=== PATIENT | female | born 1985 | race Two or more races ===

== ENCOUNTER 2017-03-12 16:45 | Emergency (ER) | payer MEDICAID ==
[~2017-03-12] VITALS: Ht 165.1 cm; Wt 53.8 kg
[2017-03-12 16:50] VITALS: BP 98/61
[2017-03-12 18:33] LABS: BASOPHILS # (AUTO) 0.03 x10^3/uL (0-0.1); BASOPHILS % (AUTO) 0 % (0-1); EOSINOPHILS # (AUTO) 0.25 x10^3/uL (0-0.4); EOSINOPHILS % (AUTO) 3 % (1-7); LYMPHOCYTES # (AUTO) 2.65 x10^3/uL (1-3.4); LYMPHOCYTES % (AUTO) 28 % (22-44); MD NO; MEAN CORPUSCULAR HEMOGLOBIN 30.6 pg (27.0-34.8); MEAN CORPUSCULAR HGB CONC 34.3 g/dL (32.4-35.8); MEAN CORPUSCULAR VOLUME 89.2 fL (80-100); MONOCYTES # (AUTO) 0.47 x10^3/uL (0.2-0.8); MONOCYTES % (AUTO) 5 % (2-9); NEUTROPHILS # (AUTO) 6.06 x10^3/uL (1.8-6.8); NEUTROPHILS % (AUTO) 64 % (42-75); PLATELET COUNT 249 x10^3/uL (130-400); RED BLOOD COUNT 4.27 x10^6/uL (3.82-5.3); RED CELL DISTRIBUTION WIDTH 12.5 % (9.6-15.2)
[2017-03-12 18:42] LABS: ALBUMIN 3.7 g/dL (3.4-5.0); ANION GAP 7 mmol/L (5-15); CALCIUM 8.6 mg/dL (8.5-10.1); CHLORIDE 105 mmol/L (98-107); CREATININE 0.77 mg/dL (0.55-1.02)
[2017-03-12 18:43] LABS: ACETAMINOPHEN < 2 mcg/mL (10-30); SALICYLATE LEVEL < 1.7 mg/dL (2.8-20.0)
== END 2017-03-12 19:01 | disposition left against medical advice (07) ==
LOC: ED 18:55
DX: F41.9 Anxiety disorder, unspecified (principal); F32.9 Major depressive disorder, single episode, unspecified
CPT/HCPCS: 36415; 80048; 80307; 80329; 82040; 84703; 85025; 99284; G0479; G0480

== ENCOUNTER 2017-03-14 02:19 | Observation (INO) | payer MEDICAID ==
[~2017-03-14] VITALS: Ht 165.1 cm; Wt 51.1 kg
[2017-03-14 03:35] LABS: AMPHETAMINE SCREEN, URINE Positive (Negative); BARBITURATE SCREEN, URINE Negative (Negative); BENZODIAZEPINE SCREEN, URINE Negative (Negative); CANNABINOID SCREEN, URINE Negative (Negative); COCAINE SCREEN, URINE Negative (Negative); METHADONE SCREEN, URINE Negative (Negative); OPIATE SCREEN, URINE Positive (Negative)
[2017-03-14 03:43] LABS: BASOPHILS # (AUTO) 0.02 x10^3/uL (0-0.1); BASOPHILS % (AUTO) 0 % (0-1); EOSINOPHILS # (AUTO) 0.22 x10^3/uL (0-0.4); EOSINOPHILS % (AUTO) 3 % (1-7); LYMPHOCYTES # (AUTO) 2.25 x10^3/uL (1-3.4); LYMPHOCYTES % (AUTO) 30 % (22-44); MD NO; MEAN CORPUSCULAR HEMOGLOBIN 30.6 pg (27.0-34.8); MEAN CORPUSCULAR HGB CONC 34.9 g/dL (32.4-35.8); MEAN CORPUSCULAR VOLUME 87.8 fL (80-100); MEAN PLATELET VOLUME 7.6 fL (7.4-10.4); MONOCYTES # (AUTO) 0.53 x10^3/uL (0.2-0.8); MONOCYTES % (AUTO) 7 % (2-9); NEUTROPHILS # (AUTO) 4.52 x10^3/uL (1.8-6.8); NEUTROPHILS % (AUTO) 60 % (42-75); PLATELET COUNT 278 x10^3/uL (130-400); RED BLOOD COUNT 4.66 x10^6/uL (3.82-5.3); RED CELL DISTRIBUTION WIDTH 12.7 % (9.6-15.2)
[2017-03-14 03:48] LABS: ALANINE AMINOTRANSFERASE 16 U/L (12-78); ALBUMIN 4.2 g/dL (3.4-5.0); ANION GAP 8 mmol/L (5-15); CALCIUM 9.5 mg/dL (8.5-10.1); CHLORIDE 103 mmol/L (98-107); CREATININE 0.76 mg/dL (0.55-1.02)
[2017-03-14 03:49] LABS: SALICYLATE LEVEL < 1.7 mg/dL (2.8-20.0)
[2017-03-14 03:53] LABS: ALKALINE PHOSPHATASE 62 U/L (45-117); BILIRUBIN,TOTAL 1.1 mg/dL (0.2-1.0); TOTAL PROTEIN 8.4 g/dL (6.4-8.2)
[2017-03-14 03:55] LABS: ACETAMINOPHEN < 2 mcg/mL (10-30)
[2017-03-14] MEDS ORDERED: BUSP5TAB2 PO ×2 (06:49)
[2017-03-14] MEDS ORDERED: SERT100T PO (06:49)
[2017-03-14] MEDS ORDERED: NICOTINE 14MG/24 HR PATCH.TD24 TD ONE (07:00)
[2017-03-14] MEDS ORDERED: CHLORDIAZEPOXIDE 25 MG CAPSULE PO PRN (07:00)
[2017-03-14] MEDS ORDERED: ACETAMINOPHEN 325 MG TABLET PO PRN (07:00)
[2017-03-14 08:00] VITALS: BP 114/80
[2017-03-14] MEDS: BUSPIRONE 5 MG TABLET PO SCH ×2 (08:19→21:07)
[2017-03-14] MEDS: SERTRALINE 100MG TABLET PO SCH (08:19)
[2017-03-14 19:23] VITALS: BP 116/70
[2017-03-15 08:00] VITALS: BP 96/70
[2017-03-15] MEDS: SERTRALINE 100MG TABLET PO SCH (09:13)
[2017-03-15] MEDS: BUSPIRONE 5 MG TABLET PO SCH ×2 (09:14→20:55)
[2017-03-15] MEDS: NICOTINE 14MG/24 HR PATCH.TD24 TD SCH (19:30)
[2017-03-15 19:40] VITALS: BP 101/61
[2017-03-16 08:00] VITALS: BP 99/64
[2017-03-16] MEDS: SERTRALINE 100MG TABLET PO SCH (08:46)
[2017-03-16] MEDS: BUSPIRONE 5 MG TABLET PO SCH ×2 (08:47→20:11)
[2017-03-16 19:30] VITALS: BP 99/63
[2017-03-16] MEDS: NICOTINE 14MG/24 HR PATCH.TD24 TD SCH (19:33)
[2017-03-17 00:31] VITALS: BP 102/66
[2017-03-17 00:32] VITALS: BP 92/60
[2017-03-17 08:15] VITALS: BP 97/61
[2017-03-17] MEDS: SERTRALINE 100MG TABLET PO SCH (09:10)
[2017-03-17] MEDS: BUSPIRONE 5 MG TABLET PO SCH ×2 (09:11→20:15)
[2017-03-17 19:27] VITALS: BP 98/59
[2017-03-17] MEDS: NICOTINE 14MG/24 HR PATCH.TD24 TD SCH (19:30)
[2017-03-18 09:13] VITALS: BP 97/59
[2017-03-18] MEDS: BUSPIRONE 5 MG TABLET PO SCH (09:14)
[2017-03-18] MEDS: SERTRALINE 100MG TABLET PO SCH (09:14)
[2017-03-18] MEDS ORDERED: NICO-486 TD (11:23)
== END 2017-03-18 12:13 | disposition home or self-care (01) ==
LOC: ED 02:30 → EDIP 06:48 → INTOOBSV 07:41 → UNDOADMOB 07:41 → EDIP 07:41 → 2N 07:56
PROVIDERS: ADMIT Family Medicine; ATTEND Family Medicine
DX: R45.851 Suicidal ideations (principal); F33.2 Major depressive disorder, recurrent severe without psychotic features; F41.1 Generalized anxiety disorder; F10.10 Alcohol abuse, uncomplicated; F15.10 Other stimulant abuse, uncomplicated; F17.200 Nicotine dependence, unspecified, uncomplicated; Z91.14 Patient's other noncompliance with medication regimen
CPT/HCPCS: 36415; 80053; 80307; 80329; 84703; 85025; 99285; G0378; G0479; G0480